=== PATIENT | male | born 1945 | race Caucasian/White ===

== ENCOUNTER 2016-12-07 21:34 | Emergency (ER) | payer MEDICARE ==
[~2016-12-07] VITALS: Ht 182.9 cm; Wt 100.6 kg
[~2016-12-07 21:34] MED LIST: ADULT ASPIRIN E81 MG PO; AMLODIPINE10 MG PO; AZITHROMYCIN250 MG PO; CENTRUM PO; CENTRUM SILVER ULTR1 PO; CIPROFLOXACN250 M1 PO; CO Q10 PO; CYMBALTA60 MG PO; DILAUDID 2MG2 MG/TA1 PO; DILAUDID 2MG2 MG/TAB PO; DOXYCYCLINE100 MG PO; HYDROMORPHONE HC4 MG PO; HYZAAR1 TA2 PO; LORTAB 10 PO; METHADONE10 M1 PO; NORVASC5 MG PO; POTASSIUM GLUC550 M1 PO; POTASSIUM GLUCONATE OR; PREDNISONE10 MG PO; PREDNISONE20 MG PO; PROAIR HFA IN; PROVENTIL HFA IN; QVAR40 MCG IN; STIOLTO RESPIMA1 AER PO; SYMBICORT1 AE1 IN; TOPROL XL50 MG PO; [UNRECOGNIZED DRUG - OTHER] PO
[2016-12-07 22:52] LABS: HEMATOCRIT 28.4 % (39.0-50.0); HEMOGLOBIN 9.3 g/dl (14.0-18.0); IMMATURE GRANULOCYTES 0.5 % (0.0-1.0); MEAN CELL VOLUME 83.3 fL CALC (80.0-100.0); MEAN CORPUSCULAR HGB 27.3 pG CALC (26.0-32.0); MEAN CORPUSCULAR HGB CONC 32.7 g/L CALC (32.0-36.0); NEUT# 11.06 thou/uL (1.82-7.42); RED BLOOD COUNT 3.41 mill/uL (4.70-6.10)
[2016-12-07 22:54] LABS: ALBUMIN 3.6 g/dL (3.2-5.0); ALKALINE PHOSPHATASE 98 u/l (38-126); ANION GAP 14 (6-22 (CALC)); BILIRUBIN, TOTAL 0.8 mg/dL (0.0-1.4); BUN 17 mg/dL (8-23); BUN/CREATININE RATIO 24 (12-20 (CALC)); CALCIUM 8.4 mg/dL (8.4-10.2); CARBON DIOXIDE 31 mmol/l (22-30); CHLORIDE 94 mmol/l (95-108); CREATININE 0.7 mg/dL (0.7-1.3); GFR > 60 ML/MIN (>=60 (CALC)); GFR FOR AFR.AMER. > 60 ML/MIN (>=60 (CALC)); GLUCOSE 98 mg/dL (82-115); POTASSIUM 2.9 mmol/l (3.5-5.1); SGOT/AST 22 u/l (19-48); SGPT/ALT 30 u/l (11-66); SODIUM 135 mmol/l (137-146)
[2016-12-07 23:06] LABS: MYOGLOBIN 69 ng/mL (0 - 121)
[2016-12-07] MEDS ORDERED: KEFLEX500 MG PO (23:56)
[2016-12-08 00:28] VITALS: BP 145/66
== END 2016-12-08 00:30 | disposition left against medical advice (07) ==
LOC: ED 21:34
PROVIDERS: Emergency Medicine
DX: L03.116 Cellulitis of left lower limb (principal); L03.115 Cellulitis of right lower limb; E87.6 Hypokalemia; D64.9 Anemia, unspecified; D72.829 Elevated white blood cell count, unspecified; Z91.19 Patient's noncompliance with other medical treatment and regimen; R50.9 Fever, unspecified

== ENCOUNTER 2019-05-31 | Emergency (ER) | payer MEDICARE ==
[~2019-05-31] MED LIST changes: +KEFLEX500 MG PO
[2019-06-01 00:50] LABS: HEMATOCRIT 35.7 % (39.0-50.0); HEMOGLOBIN 11.7 g/dl (14.0-18.0); IMMATURE GRANULOCYTES 0.2 % (0.0-5.0); MEAN CELL VOLUME 89.9 fL CALC (80.0-100.0); MEAN CORPUSCULAR HGB 29.5 pG CALC (26.0-32.0); MEAN CORPUSCULAR HGB CONC 32.8 g/L CALC (32.0-36.0); NEUT# 9.55 thou/uL (1.82-7.42); RED BLOOD COUNT 3.97 mill/uL (4.70-6.10); RED CELL DISTRI WIDTH 12.7 % (11.5-15.5)
[2019-06-01 01:00] LABS: ALBUMIN 4.3 g/dL (3.2-5.0); ALKALINE PHOSPHATASE 88 u/l (38-126); BILIRUBIN, TOTAL 0.6 mg/dL (0.0-1.4); BUN 21 mg/dL (8-23); BUN/CREATININE RATIO 24 (12-20 (CALC)); CHLORIDE 101 mmol/l (95-108); CREATININE 0.9 mg/dL (0.7-1.3); GFR > 60 ML/MIN (>=60 (CALC)); GFR FOR AFR.AMER. > 60 ML/MIN (>=60 (CALC)); POTASSIUM 3.8 mmol/l (3.5-5.1); SGOT/AST 28 u/l (19-48); SODIUM 137 mmol/l (137-146)
[2019-06-01 01:03] LABS: ANION GAP 15 (6-22 (CALC)); CARBON DIOXIDE 25 mmol/l (22-30)
== END 2019-06-01 03:00 | disposition short-term general hospital (02) ==
DX: L03.113 Cellulitis of right upper limb (principal); S61.411A Laceration without foreign body of right hand, initial encounter; I10 Essential (primary) hypertension; W20.8XXA Other cause of strike by thrown, projected or falling object, initial encounter; Y93.H2 Activity, gardening and landscaping; Y92.009 Unspecified place in unspecified non-institutional (private) residence as the place of occurrence of the external cause

== ENCOUNTER 2019-06-25 | Emergency (ER) | payer MEDICARE | END 2019-06-25 14:45 | disposition home or self-care (01) | PROC: 0HQKXZZ Repair Right Lower Leg Skin, External Approach (ICD-10-PCS; principal; 2019-06-25) | DX: S81.811A Laceration without foreign body, right lower leg, initial encounter (principal); I83.891 Varicose veins of right lower extremity with other complications; I10 Essential (primary) hypertension; F17.200 Nicotine dependence, unspecified, uncomplicated; W28.XXXA Contact with powered lawn mower, initial encounter; Y93.89 Activity, other specified; Y92.009 Unspecified place in unspecified non-institutional (private) residence as the place of occurrence of the external cause; L03.113 Cellulitis of right upper limb; M86.9 Osteomyelitis, unspecified; Z45.2 Encounter for adjustment and management of vascular access device | CPT/HCPCS: J0692; J0878 ==

== ENCOUNTER 2019-12-30 19:21 | Emergency (ER) | payer MEDICARE ==
[~2019-12-30] VITALS: Ht 182.9 cm; Wt 90.9 kg
[2019-12-30] MEDS ORDERED: ESCITALOPRAM OX20 MG PO (19:58)
[2019-12-30 20:44] LABS: HEMATOCRIT 35.6 % (39.0-50.0); IMMATURE GRANULOCYTES 0.4 % (0.0-5.0); MEAN CORPUSCULAR HGB 28.1 pG CALC (26.0-32.0); MEAN CORPUSCULAR HGB CONC 30.9 g/dL CAL (32.0-36.0); NEUT# 7.38 thou/uL (1.82-7.42); RED BLOOD COUNT 3.91 mill/uL (4.70-6.10); RED CELL DISTRI WIDTH 14.6 % (11.5-15.5)
[2019-12-30 20:57] LABS: ALBUMIN 4.4 g/dL (3.2-5.0); ALKALINE PHOSPHATASE 94 u/l (38-126); ANION GAP 12 (6-22 (CALC)); BILIRUBIN, TOTAL 0.5 mg/dL (0.0-1.4); BUN 30 mg/dL (8-23); BUN/CREATININE RATIO 27 (12-20 (CALC)); CARBON DIOXIDE 30 mmol/l (22-30); CHLORIDE 98 mmol/l (95-108); CREATININE 1.1 mg/dL (0.7-1.3); GFR > 60 ML/MIN (>=60 (CALC)); GFR FOR AFR.AMER. > 60 ML/MIN (>=60 (CALC)); POTASSIUM 3.9 mmol/l (3.5-5.1); SGOT/AST 23 u/l (19-48); SODIUM 136 mmol/l (137-146); TOTAL PROTEIN 8.2 g/dL (6.3-8.2)
[2019-12-30] MEDS ORDERED: BACTRIM DS1 TAB PO (21:49)
[2019-12-30] MEDS ORDERED: KEFLEX500 M1 PO (21:49)
[2019-12-30 22:35] VITALS: BP 142/70
== END 2019-12-30 22:36 | disposition left against medical advice (07) ==
LOC: ED 19:21 → ED-I 20:09 → ED 22:36
PROVIDERS: Emergency Medicine
DX: L03.115 Cellulitis of right lower limb (principal); G62.9 Polyneuropathy, unspecified; I10 Essential (primary) hypertension; Z91.19 Patient's noncompliance with other medical treatment and regimen

== ENCOUNTER 2020-05-15 14:50 | Inpatient (IN) | payer MEDICARE ==
[~2020-05-15] VITALS: Ht 182.9 cm; Wt 103.9 kg
[~2020-05-15 14:50] MED LIST changes: +BACTRIM DS1 TAB PO; +ESCITALOPRAM OX20 MG PO; +KEFLEX500 M1 PO
--- NOTE | 2020-05-15 15:18 | NUR ---
PATIENT BACK OUT TO WAITING ROOM TO AWAIT ROOM ASSIGNMENT.
--- NOTE | 2020-05-15 15:45 | NUR ---
PATIENT TO ROOM VIA WHEELCHAIR ACCOMPANIED BY DAUGHTER.
--- NOTE | 2020-05-15 16:05 | NUR ---
Reassessment of patient completed. No distress noted. Patient round completed daughter at bedside with patient, her father, warm blanket given as per request.
[2020-05-15 16:27] LABS: HEMATOCRIT 32.3 % (39.0-50.0); HEMOGLOBIN 10.1 g/dl (14.0-18.0); IMMATURE GRANULOCYTES 0.7 % (0.0-5.0); MEAN CELL VOLUME 90.2 fL CALC (80.0-100.0); MEAN CORPUSCULAR HGB 28.2 pG CALC (26.0-32.0); MEAN CORPUSCULAR HGB CONC 31.3 g/dL CAL (32.0-36.0); NEUT# 8.55 thou/uL (1.82-7.42); RED BLOOD COUNT 3.58 mill/uL (4.70-6.10); RED CELL DISTRI WIDTH 14.7 % (11.5-15.5)
[2020-05-15] MEDS ORDERED: ESCITALOPRAM OX10 MG PO (16:35)
[2020-05-15] MEDS ORDERED: LOSARTAN POTASS50 MG PO (16:40)
[2020-05-15] MEDS ORDERED: NEURONTIN300 MG PO (16:40)
[2020-05-15] MEDS ORDERED: FERR SULFATE325 MG PO (16:40)
[2020-05-15] MEDS ORDERED: CENTRUM SILVER PO (16:41)
[2020-05-15] MEDS ORDERED: LORAZEPAM0.5 MG PO (16:41)
--- NOTE | 2020-05-15 16:42 | NUR ---
URINAL GIVEN, PATIENT STATES UNDERSTANDING OF USE.
[2020-05-15 16:57] LABS: ALBUMIN 4.1 g/dL (3.2-5.0); ALKALINE PHOSPHATASE 111 u/l (38-126); ANION GAP 11 (6-22 (CALC)); BILIRUBIN, TOTAL 0.4 mg/dL (0.0-1.4); BUN 22 mg/dL (8-23); BUN/CREATININE RATIO 21 (12-20 (CALC)); CARBON DIOXIDE 30 mmol/l (22-30); CHLORIDE 96 mmol/l (95-108); CREATININE 1.1 mg/dL (0.7-1.3); GFR > 60 ML/MIN (>=60 (CALC)); GFR FOR AFR.AMER. > 60 ML/MIN (>=60 (CALC)); POTASSIUM 3.9 mmol/l (3.5-5.1); SGOT/AST 28 u/l (19-48); SODIUM 134 mmol/l (137-146); TOTAL PROTEIN 8.5 g/dL (6.3-8.2)
[2020-05-15 17:28] LABS: URINE BILIRUBIN - DIPSTICK NEGATIVE (NEGATIVE); URINE BLOOD DIPSTICK LARGE (NEGATIVE); URINE COLOR YELLOW; URINE GLUCOSE - DIPSTICK NEGATIVE (NEGATIVE); URINE KETONE NEGATIVE (NEGATIVE); URINE LEUK ESTERASE NEGATIVE (NEGATIVE); URINE NITRITE - DIPSTICK NEGATIVE (Negative); URINE PROTEIN - DIPSTICK NEGATIVE (NEG-TRACE); URINE UROBILINOGEN - DIPSTICK 0.2 E.U./dL (0.2)
--- NOTE | 2020-05-15 17:30 | NUR ---
MD AT BEDSIDE TO DISCUSS RESULTS AND POC.
[2020-05-15 17:40] LABS: URINE WBC 0-2 WBC/hpf (0-5)
--- NOTE | 2020-05-15 17:45 | NUR ---
COVID SWAB COLLECTED, ISOLATION PRECAUTIONS INITIATED.
--- NOTE | 2020-05-15 18:40 | NUR ---
REPORT GIVEN TO TIANA OSEGUERA.
--- NOTE | 2020-05-15 19:00 | NUR ---
REPORT RECEIVED FROM Aram CHISHOLM
--- NOTE | 2020-05-15 19:09 | NUR ---
INTRODUCED SELF TO PT, ADVISED OF CONT WAIT TIME FOR ADMISSION TO FLOOR. VERBALIZED UNDERSTANDING. DENIES ANY NEEDS. DAUGHTER BEDSIDE.
--- NOTE | 2020-05-15 19:20 | NUR ---
Admission Note Report Given to: DESTINY RN Transported by: Wheelchair X Stretcher Transported with: X Nurse Transporter X Patent IV O2 Toll Collector Supervisor Location: ICU X [facility]2 PT REPORT PROVIDED TO DESTINY ON MS. PT TRANSPORTED IN STABLE CONDITION TO FLOOR.
--- NOTE | 2020-05-15 19:30 | NUR ---
PT RECEIVED FROM ED TO ROOM 280. ARRIVES VIA STRETCHER ACCOMPANIED BY THEODORE OSEGUERA. PT AMBULATORY TO BED. GAIT UNSTEADY. PT DENIES PAIN AT THIS TIME. ORIENTED TO UNIT, ROOM, CALL RAZO, LIGHTS, TV. ICE WATER PROVIDED. CALL RAZO WITHIN REACH. AGREES TO CALL PRN.
[2020-05-15 19:55] VITALS: BP 132/61
--- NOTE | 2020-05-15 20:00 | NUR ---
PHYSICAL ASSESMENT COMPLETE. PT HAS BILATERAL FEET SWELLING. FOREIGN BODY REMOVED FROM RIGHT FOOT IN THE ED. RIGHT LEG AND FOOT RED WTIH SIGNIFICANT CELLULTIS. PT CURRENTLY DENIES PAIN OR DISCOMFORT. SCHEDULED MEDICATIONS AND PRN MEDICATION ADMINISTERED, SEE E-MAR. PT DENIES ANY NEEDS AT THIS TIME. PLAN OF CARE REVIEWED, PT DENIES QUESTIONS, VERBALIZES UNDERSTANDING. ITEMS WITHIN REACH, BED LOCKED IN LOW POSITION W/ BEDRAILS UP X2. CALL RAZO WITHIN REACH, AGREES TO CALL PRN.
--- NOTE | 2020-05-16 00:33 | NUR ---
PT LAYING IN BED WITH EYES CLOSED, APPEARS TO BE SLEEPING, APPEARS COMFORTABLE AND IN NO DISTRESS. RESPIRATIONS REGULAR AND UNLABORED. ITEMS REMAIN WITHIN REACH, CALL RAZO REMAINS WITHIN REACH. BED REMAINS LOCKED AND IN LOW POSITION WITH BEDRAILS UP X2. WILL CONTINUE TO MONITOR.
[2020-05-16 04:00] VITALS: BP 110/56
--- NOTE | 2020-05-16 04:00 | NUR ---
PT RESTING IN BED, NO SIGNS OF DISTRESS NOTED, RESP EVEN AND UNLABORED. PT VOICES NO NEEDS OR COMPLAINTS AT THIS TIME. CALL LIGHT IN REACH, CONTINUE TO MONITOR.
[2020-05-16 05:17] LABS: HEMATOCRIT 30.8 % (39.0-50.0); HEMOGLOBIN 9.5 g/dl (14.0-18.0); IMMATURE GRANULOCYTES 0.7 % (0.0-5.0); MEAN CELL VOLUME 92.5 fL CALC (80.0-100.0); MEAN CORPUSCULAR HGB 28.5 pG CALC (26.0-32.0); MEAN CORPUSCULAR HGB CONC 30.8 g/dL CAL (32.0-36.0); NEUT# 4.26 thou/uL (1.82-7.42); RED BLOOD COUNT 3.33 mill/uL (4.70-6.10); RED CELL DISTRI WIDTH 14.4 % (11.5-15.5)
[2020-05-16 05:35] LABS: ALKALINE PHOSPHATASE 94 u/l (38-126); ANION GAP 10 (6-22 (CALC)); BILIRUBIN, TOTAL 0.4 mg/dL (0.0-1.4); BUN 17 mg/dL (8-23); BUN/CREATININE RATIO 18 (12-20 (CALC)); CARBON DIOXIDE 28 mmol/l (22-30); CHLORIDE 103 mmol/l (95-108); CREATININE 0.9 mg/dL (0.7-1.3); GFR > 60 ML/MIN (>=60 (CALC)); GFR FOR AFR.AMER. > 60 ML/MIN (>=60 (CALC)); POTASSIUM 4.4 mmol/l (3.5-5.1); SGOT/AST 21 u/l (19-48); SODIUM 137 mmol/l (137-146)
[2020-05-16 05:42] LABS: ALBUMIN 3.1 g/dL (3.2-5.0); TOTAL PROTEIN 6.7 g/dL (6.3-8.2)
[2020-05-16 08:30] VITALS: BP 112/60
--- NOTE | 2020-05-16 08:30 | NUR ---
PATIENT RESTING IN THE BED.PICTURES OF THE RIGHT FOOT TAKEN. DENIES ANY PAIN OR DISCOMFORT TO THE RIGHT FOOT. EDUCATED ON NPO AT THIS TIME. IV INFUSING. REPOSITIONED FOR COMFORT,SIDE RAILS UP CALL LIGHT IN REACH BED LOCKED IN LOW POSITION, WILL CONTINUE TO MONITOR THE PATIENT.
--- NOTE | 2020-05-16 12:36 | NUR ---
DR RAMIREZ IN TO VISIT WITH PT CULTURE OBTAINED ON R FOOT.
--- NOTE | 2020-05-16 13:41 | NUR ---
SPOKE WITH PT'S DAUGHTER RE: SURGERY. WILL NOT BE UNTIL THRUSDAY. WANTS A FEW MORE DAYS OF ABT IN PT.
[2020-05-16 15:50] VITALS: BP 146/67
--- NOTE | 2020-05-16 17:33 | NUR ---
PT WOULD BENEFIT FROM PT EVALUATION IF MEDICAL AGREES.
[2020-05-16 19:08] VITALS: BP 142/69
--- NOTE | 2020-05-16 20:14 | NUR ---
PHYSICAL ASSESMENT COMPLETE. PT CURRENTLY DENIES PAIN OR DISCOMFORT. SCHEDULED MEDICATIONS AND PRN MEDICATION ADMINISTERED, SEE E-MAR. PT DENIES ANY NEEDS AT THIS TIME. PLAN OF CARE REVIEWED, PT DENIES QUESTIONS, VERBALIZES UNDERSTANDING. ITEMS WITHIN REACH, BED LOCKED IN LOW POSITION W/ BEDRAILS UP X2. CALL RAZO WITHIN REACH, AGREES TO CALL PRN.
[2020-05-17 04:04] VITALS: BP 144/73
[2020-05-17 06:07] LABS: HEMATOCRIT 33.4 % (39.0-50.0); HEMOGLOBIN 10.2 g/dl (14.0-18.0); MEAN CELL VOLUME 92.5 fL CALC (80.0-100.0); MEAN CORPUSCULAR HGB 28.3 pG CALC (26.0-32.0); MEAN CORPUSCULAR HGB CONC 30.5 g/dL CAL (32.0-36.0); RED BLOOD COUNT 3.61 mill/uL (4.70-6.10); RED CELL DISTRI WIDTH 14.2 % (11.5-15.5)
[2020-05-17 07:02] LABS: ANION GAP 10 (6-22 (CALC)); BUN 14 mg/dL (8-23); BUN/CREATININE RATIO 16 (12-20 (CALC)); CARBON DIOXIDE 31 mmol/l (22-30); CHLORIDE 101 mmol/l (95-108); CREATININE 0.9 mg/dL (0.7-1.3); GFR > 60 ML/MIN (>=60 (CALC)); GFR FOR AFR.AMER. > 60 ML/MIN (>=60 (CALC)); POTASSIUM 4.4 mmol/l (3.5-5.1); SODIUM 137 mmol/l (137-146)
[2020-05-17 08:00] VITALS: BP 140/70
--- NOTE | 2020-05-17 08:00 | NUR ---
PATIENT RESTING IN THE BED, HE IS ALERT, HE DENIES PAIN. IV INFUSING. REPOSITIOEND FOR COMOFRT, SIDE RAILS UP CALL LIGHT IN REACH BED LOCKED IN LOW POSITION, WILL CONTINUE TO MONITOR THE PATIENT.
--- NOTE | 2020-05-17 13:05 | NUR ---
S: ELIAZAR WONG is a 74 M who presents with cellulitis. He has a history of hypertension, mental disorder, lung disease, and COPD. All medications in patient's chart were reviewed. O: VS: BP 144/73 mmHg, P 71 bpm, RR 18 breaths/min, T 97.3 F W 103.901 kg, HT 72 inches, Scr= 0.9 (1) mg/dl, CrCl= 98.1 ml/min A: Blood culture is pending P: Patient is on cefepime 2 g IV Q12H. Vancomycin ordered for pharmacy to dose. Start Vancomycin 1 g IV Q8H. Vancomycin trough is drawn before the 4th dose on 05/18/20 at 1230. Vancomycin goal trough is between 10-20 mcg/ml. Pharmacy will follow and or advise on antibiotics use as needed.
[2020-05-17 14:30] VITALS: BP 146/75
--- NOTE | 2020-05-17 16:35 | NUR ---
INSTUCTED PT NPO AT MIDNIGHT PENDING OR TOMORROW AT LUNCH. PT STATED HE UNDERSTOOD. NO DISTRESS NOTED AT THIS TIEM WILL CONTINUE TO MONITOR.
[2020-05-17 19:00] VITALS: BP 148/77
[2020-05-18] VITALS (8 sets, daily range): BP systolic 111–155; BP diastolic 59–85
[2020-05-18 06:13] LABS: HEMOGLOBIN 10.6 g/dl (14.0-18.0); MEAN CELL VOLUME 92.8 fL CALC (80.0-100.0); MEAN CORPUSCULAR HGB 28.1 pG CALC (26.0-32.0); MEAN CORPUSCULAR HGB CONC 30.3 g/dL CAL (32.0-36.0); RED BLOOD COUNT 3.77 mill/uL (4.70-6.10); RED CELL DISTRI WIDTH 14.3 % (11.5-15.5)
[2020-05-18 06:35] LABS: ANION GAP 10 (6-22 (CALC)); BUN 14 mg/dL (8-23); BUN/CREATININE RATIO 16 (12-20 (CALC)); CARBON DIOXIDE 30 mmol/l (22-30); CHLORIDE 100 mmol/l (95-108); CREATININE 0.9 mg/dL (0.7-1.3); GFR > 60 ML/MIN (>=60 (CALC)); GFR FOR AFR.AMER. > 60 ML/MIN (>=60 (CALC)); POTASSIUM 4.7 mmol/l (3.5-5.1); SODIUM 136 mmol/l (137-146)
--- NOTE | 2020-05-18 09:30 | NUR ---
ASSESSMENT IS COMPLETED: IV SITE IS FREE FROM REDNESS ORE MALLORY. HR IS REG,PULSES ARE STRONG X4, ABD IS SOFT WITH ACTIVE BS. BREATH SOUNDS ARE CLEAR,BILATERALLY. R FOOT HAS SOME SWELLIN GNOTED. PT IS NPO. WAITING FOR SURGERY. CONTROLLER REPAIRER AND TESTER TIME WAS SUPPOSED TO BE AT 12PM.
--- NOTE | 2020-05-18 12:00 | NUR ---
PT IS IN SURGERY. AT THIS TIME.
--- NOTE | 2020-05-18 12:01 | NUR ---
S: ELIAZAR WONG is a 74 M who presents with cellulitis. He has a history of hypertension, lung disorder, mental disorder, COPD, cancer colon and prostrat osteomylitis. All medications in patient's chart were reviewed. O: Trough level on 05/18/20 @ 1100 (drawn early) = 14 ug/ml Estimated true trough = 11.2 ug/ml VS: BP 138/74 mmHg, P 82 bpm, RR 11 breaths/min, T 97.3 F W 103.9 kg, HT 72 inches, Scr= 0.9 mg/dl, CrCl 98.1 ml/min A: Blood culture is pending. P: Patient is on cefepime 2 g IV Q12H. Vancomycin ordered for pharmacy to dose. Continue Vancomycin 1 g IV Q8H. Vancomycin trough is drawn before the 4th dose on 05/19/20 @ 1230. Vancomycin goal trough is between 10-20 mcg/ml. Pharmacy will follow and or advise on antibiotics use as needed.
--- NOTE | 2020-05-18 14:18 | NUR ---
PT RETURNED FROM HAVING SURGERY ON THE R FOOT REMOVED A FORGEIN BODY. AND DRESSING IN TACT. PT IS ALERT AND AWAKE. CONTINUE TO OSBERVE AND MONITOR.
--- NOTE | 2020-05-18 16:05 | NUR ---
PT'S DAUGHTER AND SON HAVE CALLED AND INQUIRED ABOUT PT. DAUGHTER WOULD LIKE TO TAKE OVER GUARDIANSHIP OF HER FATHER SENT TO CASE MANAGEMENT
--- NOTE | 2020-05-18 16:15 | NUR ---
PT IS RESTING IN BED WITH MO DISTRESS NOTED.,
--- NOTE | 2020-05-18 21:30 | NUR ---
PT IN BED WITH EYES OPEN AND BALE TO MAKE NEEDS KNOWN. PT STATES HIS RIGHT FOOT FEELS SO MUCH BETTER SINCE THE SURGERY. CONTINUES ON ABT THERAPY FOR RIGHT FOOT INFECTION AND NO ADVERSE SIDE EFFECTS. DENIES PAIN AND DISCOMFORT. CONTINENT OF B/B. IV SITE TO RAC IS INTACT AND NO S/S OF INFECTION/INFILTRATION AND DRESSING IS INTACT. CALL LIGHT WITHIN REACH. WILL CONTINUE TO OBSERVE
--- NOTE | 2020-05-19 02:36 | NUR ---
PT IN BED WITH EYES CLOSED. NO S/S OF DISTRESS OR DISCOMFORT. MEDICATIONS GIVEN AND TOLERATED WELL. DENIES PAIN AND DISCOMFORT. CONTINUES ON IV ABT THERAPY FOR RIGHT FOOT INFECTION. S/P I AND D TO RIGHT FOOT. DRESSING INTACT AND SURGICAL SHOE IN PLACE. PT IS CONTINENT OF B/B. CALL LIGHT WITHIN REACH AND WILL CONTINUE TO OBSERVE
[2020-05-19 04:00] VITALS: BP 124/64
[2020-05-19 05:08] LABS: HEMATOCRIT 34.3 % (39.0-50.0); HEMOGLOBIN 10.3 g/dl (14.0-18.0); MEAN CELL VOLUME 93.5 fL CALC (80.0-100.0); MEAN CORPUSCULAR HGB 28.1 pG CALC (26.0-32.0); RED BLOOD COUNT 3.67 mill/uL (4.70-6.10); RED CELL DISTRI WIDTH 14.5 % (11.5-15.5)
[2020-05-19 05:31] LABS: ANION GAP 10 (6-22 (CALC)); BUN 19 mg/dL (8-23); BUN/CREATININE RATIO 20 (12-20 (CALC)); CARBON DIOXIDE 32 mmol/l (22-30); CHLORIDE 99 mmol/l (95-108); GFR > 60 ML/MIN (>=60 (CALC)); GFR FOR AFR.AMER. > 60 ML/MIN (>=60 (CALC)); POTASSIUM 4.5 mmol/l (3.5-5.1); SODIUM 137 mmol/l (137-146)
--- NOTE | 2020-05-19 07:15 | NUR ---
REPORT RECEIVED; PT SITTING UP IN BED WATCHING TV; ALERT AND ORIENTED; TALKATIVE AND JOKING. DENIES PAIN. RESPIRATIONS EVEN AND UNLABORED ON ROOM AIR; WHEEZING AUSCULTATED THROUGHOUT. PLAN OF CARE REVIEWED. PT ENCOURAGED TO VERBALIZE CONCERNS. STATES UNDERSTANDING. SAFETY MEASURES IN PLACE. CALL LIGHT WITHIN REACH.
--- NOTE | 2020-05-19 07:50 | NUR ---
DR. MATHIS AT BEDSIDE FOR EVAL.
[2020-05-19 07:56] VITALS: BP 136/75
[2020-05-19 09:10] VITALS: BP 136/75
--- NOTE | 2020-05-19 09:18 | NUR ---
DR. BEAVERS AND BJ ABREU AT BEDSIDE.
[2020-05-19] MEDS ORDERED: DOXYCYCL HYC100 MG PO (10:30)
[2020-05-19] MEDS ORDERED: KEFLEX500 MG PO (10:31)
--- NOTE | 2020-05-19 11:55 | NUR ---
SUGICAL DRESSING TO RIGHT FOOT CDI; FOOT ELEVATED ON PILLOW. PT AWARE OF NWB STATUS TO RLE. PT AWARE OF DISCHARGE ORDERS; CALLING FOR RIDE.
--- NOTE | 2020-05-19 13:30 | NUR ---
IV site discontinued, cath intact. No edema , no redness, voices no discomfort.
--- NOTE | 2020-05-19 14:01 | NUR ---
Discharge instructions given. Patient verbalizes understanding of same. Discharged in stable condition via [facility]. All belongings sent with pt.
== END 2020-05-19 14:20 | disposition home or self-care (01) | DRG 603 ==
LOC: ED 14:50 → ED-I 17:45 → ED 17:59 → MS2 18:00
PROVIDERS: Nurse Practitioner; Nurse Practitioner Family; ADMIT Internal Medicine; ATTEND Internal Medicine
PROC: 0JCQ0ZZ Extirpation of Matter from Right Foot Subcutaneous Tissue and Fascia, Open Approach (ICD-10-PCS; principal; 2020-05-18)
DX: L03.115 Cellulitis of right lower limb (principal); S91.341A Puncture wound with foreign body, right foot, initial encounter; I10 Essential (primary) hypertension; G62.9 Polyneuropathy, unspecified; J43.9 Emphysema, unspecified; S92.341A Displaced fracture of fourth metatarsal bone, right foot, initial encounter for closed fracture; S92.511A Displaced fracture of proximal phalanx of right lesser toe(s), initial encounter for closed fracture; M19.90 Unspecified osteoarthritis, unspecified site; F32.9 Major depressive disorder, single episode, unspecified; F15.10 Other stimulant abuse, uncomplicated; R31.9 Hematuria, unspecified; W22.8XXA Striking against or struck by other objects, initial encounter; Z88.0 Allergy status to penicillin; Z85.038 Personal history of other malignant neoplasm of large intestine; Z87.891 Personal history of nicotine dependence; Z20.822 Contact with and (suspected) exposure to COVID-19
CPT/HCPCS: J0692; J1650; Q3014; Q9967